=== PATIENT | male | born 1990 | race African-American/Black ===

== ENCOUNTER 2018-12-29 09:21 | Emergency (ER) | payer MEDICAID ==
[~2018-12-29] VITALS: Ht 177.8 cm; Wt 70.0 kg
[2018-12-29] MEDS ORDERED: ALBU18HF2 IH (09:32)
[2018-12-29] MEDS ORDERED: ONDANSETRON 4MG ODT PO ONE (10:00)
[2018-12-29] MEDS ORDERED: ACETAMINOPHEN WITH CODEINE 300/30MG TABLET PO ONE (10:00)
[2018-12-29] MEDS ORDERED: AMOXICILLIN/POTASSIUM CLAVULANATE 875/125MG TAB PO ONE (11:30)
[2018-12-29] MEDS ORDERED: HYDROCODONE/ACETAMINOPHEN 5/325MG TABLET PO ONE (11:30)
[2018-12-29 12:00] VITALS: BP 131/84
== END 2018-12-29 12:30 | disposition home or self-care (01) ==
LOC: ER 09:33
DX: S02.31XA Fracture of orbital floor, right side, initial encounter for closed fracture (principal); S09.8XXA Other specified injuries of head, initial encounter; Y08.89XA Assault by other specified means, initial encounter; Y93.89 Activity, other specified; Y92.89 Other specified places as the place of occurrence of the external cause; Y99.8 Other external cause status; J45.909 Unspecified asthma, uncomplicated
CPT/HCPCS: 70450; 70486; 71045; 99284; Q0162

== ENCOUNTER 2020-07-07 02:00 | Emergency (ER) | payer MEDICAID ==
[~2020-07-07] VITALS: Ht 177.8 cm; Wt 75.0 kg
[~2020-07-07 02:00] MED LIST: ALBU18HF2 IH
[2020-07-07 02:03] VITALS: BP 97/65
[2020-07-07] MEDS ORDERED: LIDOCAINE HCL/EPINEPHRINE 1%-EPI 1:100,000 20 ML VIAL INFIL ONE (02:30)
[2020-07-07] MEDS ORDERED: BACITRACIN ZINC OINT UDPKT TOP ONE (02:30)
[2020-07-07] MEDS ORDERED: TETANUS, DIPHTHERIA, PERTUSSIS VAC/PF 0.5ML (>7YR OLD) IM ONE (02:30)
== END 2020-07-07 03:48 | disposition home or self-care (01) ==
LOC: ER 02:00
DX: S51.811A Laceration without foreign body of right forearm, initial encounter (principal); J45.909 Unspecified asthma, uncomplicated; Z98.890 Other specified postprocedural states; Y04.0XXA Assault by unarmed brawl or fight, initial encounter; Y93.89 Activity, other specified; Y92.89 Other specified places as the place of occurrence of the external cause; Y99.8 Other external cause status
CPT/HCPCS: 12002; 99282; A4217; J3490; Z7610

== ENCOUNTER 2020-07-08 11:26 | Emergency (ER) | payer MEDICAID ==
[~2020-07-08] VITALS: Ht 170.2 cm; Wt 75.0 kg
[2020-07-08 12:47] VITALS: BP 144/94
== END 2020-07-08 12:47 | disposition home or self-care (01) ==
LOC: ER 11:46
DX: Z48.00 Encounter for change or removal of nonsurgical wound dressing (principal)
CPT/HCPCS: 99281

== ENCOUNTER 2020-07-17 13:30 | Emergency (ER) | payer MEDICAID ==
[~2020-07-17] VITALS: Ht 177.8 cm; Wt 75.0 kg
[2020-07-17 13:58] VITALS: BP 128/70
== END 2020-07-17 13:59 | disposition home or self-care (01) ==
LOC: ER 13:46
DX: Z48.02 Encounter for removal of sutures (principal); R03.0 Elevated blood-pressure reading, without diagnosis of hypertension
CPT/HCPCS: 99281; Z7610

== ENCOUNTER 2020-07-19 13:29 | Emergency (ER) | payer MEDICAID ==
[~2020-07-19] VITALS: Ht 180.3 cm; Wt 75.0 kg
[2020-07-19 14:38] VITALS: BP 137/98
== END 2020-07-19 15:17 | disposition home or self-care (01) ==
LOC: ER 13:29
DX: T81.30XA Disruption of wound, unspecified, initial encounter (principal); J45.909 Unspecified asthma, uncomplicated; Y83.8 Other surgical procedures as the cause of abnormal reaction of the patient, or of later complication, without mention of misadventure at the time of the procedure; Y92.018 Other place in single-family (private) house as the place of occurrence of the external cause
CPT/HCPCS: 99283